=== PATIENT | male | born 1985 | race African-American/Black ===

== ENCOUNTER 2019-04-02 17:59 | Emergency (ER) | payer MEDICAID, OTHER ==
[~2019-04-02] VITALS: Ht 180.3 cm; Wt 87.0 kg
[2019-04-02] MEDS ORDERED: IBUPROFEN 600MG TABLET PO ONE (19:15)
[2019-04-02] MEDS ORDERED: BACITRACIN ZINC OINT UDPKT TOP ONE (19:15)
[2019-04-02 20:49] VITALS: BP 121/76
== END 2019-04-02 20:50 | disposition home or self-care (01) ==
LOC: ER 17:59
DX: S93.492A Sprain of other ligament of left ankle, initial encounter (principal); S40.812A Abrasion of left upper arm, initial encounter; S10.81XA Abrasion of other specified part of neck, initial encounter; Y04.0XXA Assault by unarmed brawl or fight, initial encounter; Y93.89 Activity, other specified; Y92.89 Other specified places as the place of occurrence of the external cause
CPT/HCPCS: 73610; 99283